=== PATIENT | female | born 1985 | race Caucasian/White ===

== ENCOUNTER 2018-06-27 20:08 | Emergency (ER) | payer OTHER, MEDICAID, SELFPAY ==
[2018-06-27 20:15] VITALS: BP 109/68; PULSE 104; RESP 15; TEMP 36.8; O2SAT 94; BMI 22.2
--- NOTE | 2018-06-27 21:13 | ED.EXTPRO ---
HPI - Extremity Problem General Chief complaint: Extremity Problem,Nontraumatic Stated complaint: STAPF INFECTION RT HAND Time Seen by Provider: 06/27/18 21:00 Source: patient Mode of arrival: ambulatory Limitations: no limitations History of Present Illness HPI Narrative: Patient is a 32-year-old female a prior history of IV drug abuse. Here for evaluation of a cellulitis and infection on her right forearm. She states that it has been worsening over the past week. She states that she has not used any drugs since January 11. She has many other lesions on her body which she states are from being scratched by bushes. She was seen her primary care doctor's office today for the infection in the right arm. Received a intramuscular injection of antibiotics. She was unsure the exact antibiotic but thought that Rocephin ?sounded right ?. She states that her primary doctor sent her here for IV antibiotics. She states the last time this happened a cut was made in the wound in she was sent home with oral antibiotics. Related Data Previous Rx's Medication Instructions Recorded doxycycline monohydrate 100 mg PO BID 7 Days #14 tab 06/27/18 Allergies Allergy/AdvReac Type Severity Reaction Status Date / Time No Known Drug Allergies Allergy Verified 06/27/18 20:15 Review of Systems Constitutional Denies fever(s) Cardiovascular Denies chest pain and Denies dyspnea Respiratory Denies dyspnea Gastrointestinal Gastrointestinal: Denies abdominal pain Musculoskeletal Reports myalgias (Right arm) and Reports arthralgias Comments: Right elbow Integumentary/Breasts Comments: Redness and drainage to the right arm Neurologic Comments: Some tingling to the right hand Hematologic/Lymphatic Comments: Not on anticoagulation [facility] Medical History Drug abuse (Acute) Skin abscess (Acute) Surgical History No pertinent past surgical history (Acute) Social History Smoking Status: Current every day smoker Exam Initial Vital Signs Initial Vital Signs: Vital Signs Temperature 98.3 F 06/27/18 20:15 Pulse Rate 104 H 06/27/18 20:15 Respiratory Rate 15 06/27/18 20:15 Blood Pressure 109/68 06/27/18 20:15 Pulse Oximetry 94 06/27/18 20:15 Const General: cooperative, healthy appearing, well developed and No acute distress Orientation: alert, awake and oriented x3 HENMT Head: normal to inspection and normocephalic Resp Effort & Inspection: normal respiratory effort Cardio Rate: tachycardic Skin Other: Patient with a 2 cm round lesion on the dorsal aspect of the right arm in between the wrist and the elbow. Is draining purulent material Patient has an area of redness extending from just proximal to the wrist to just distal to the shoulder on the dorsal aspect of the right arm. Does extend to the volar aspect. It is warm to the touch. Patient with multiple other lesions on bilateral upper extremities and face and multiple stages of healing. No redness surrounding these areas Patient does have a lesion above her right ear that is tender to palpation. Neuro Sensory Exam: no sensory deficits noted Extrem Other: Right shoulder right elbow right wrist no pain with movement Psych Appearance: grossly normal and well kempt Course Orders Ordered: Discontinued Medications Doxycycline Hyclate (Vibramycin) 100 mg PO NOW ONE Stop: 06/27/18 21:15 Last Admin: 06/27/18 21:53 Dose: 100 mg Vital Signs - 8 hr 06/27/18 20:15 Temperature 98.3 F Pulse Rate 104 H Respiratory Rate 15 Blood Pressure 109/68 Pulse Oximetry 94 MDM - Extremity (Nontraumatic) MDM Narrative Medical decision making narrative: Bedside ultrasound shows no distinct abscess over the area of drainage to her right arm. It appears the patient received a intramuscular injection of Rocephin prior to arrival here in the ER. Was tachycardic but was not febrile. Informed the patient that she probably should be admitted to the hospital for IV antibiotics. Patient stated that she did not want to be admitted. She stated that the last time this happened oral antibiotics work for her. There is no lesion that needs drained here in the ER. She was given a dose of doxycycline here in the ER. Will send home with a dose of doxycycline. I felt that she did not need a dose of IV antibiotics here in the emergency department since she just received a dose of intramuscular antibiotics. Patient was given return precautions. Informed her that if the redness extended around the line that was drawn by her primary doctor that she should return to the emergency department and at that point she you could potentially need admitted for IV antibiotics. The patient expressed understanding and agreement with plan. Discharge Plan Departure Patient Disposition: Home Clinical Impression: Cellulitis Discharge Date/Time: 06/27/18 21:54 Interventions: ED Discharge Assessment Last Done: 06/27/18 21:54 Instructions: DI for Cellulitis -- Adult Activity Restrictions/Additional Instructions: You were given your 1st dose of antibiotics here in the emergency department. Fill the prescription that you were given this evening and start taking it tomorrow morning. If the redness starts to expand outside of the line that was drawn by her primary doctor you do need to return to the emergency department. If your symptoms otherwise worsen return to the emergency department. Call your primary doctor for a follow-up. Prescriptions: New doxycycline monohydrate 100 mg tablet 100 mg PO BID 7 Days Qty: 14 RF: 0
[2018-06-27] MEDS: DOXYCYCLINE HYCLATE 100 MG TABLET PO (21:53)
== END 2018-06-27 21:54 | disposition home or self-care (01) ==
PROVIDERS: Emergency Provider Emergency Medicine; Family Provider Specialist
DX: L03.113 Cellulitis of right upper limb (principal)
CPT/HCPCS: 99282; 99283